=== PATIENT | female | born 1985 | race Two or more races ===

== ENCOUNTER 2020-09-30 10:13 | Emergency (ER) | payer OTHER ==
--- NOTE | 2020-09-30 10:27 | ER Document Report ---
ED Medical Screen (RME) - General Stated Complaint: VAGINAL BLEEDING/CLOTTING Time Seen by Provider: 09/30/20 10:27 Mode of Arrival: Ambulatory Information source: Patient Notes: 35-year-old female patient presented to the emergency department concern for vaginal bleeding and passing clots. Patient reports she usually has normal menstrual cycles. Her last menstrual cycle started on 09/14/20 and lasted 4 days. She states she began bleeding again on 09/24/2020. She states she went to her doctor and they diagnosed her with a urinary tract infection which she is currently taking antibiotics for. She states the bleeding has gotten worse and she is now passing clots. She denies any dizziness or episodes of syncope. Patient appears well, nontoxic, no acute distress noted. Exam deferred until patient is in a room due to nature of complaint. I have greeted and performed a rapid initial assessment of this patient. A comprehensive ED assessment and evaluation of the patient, analysis of test results and completion of the medical decision making process will be conducted by additional ED providers. I have specifically instructed the patient or family members with the patient to immediately return to any nursing staff should anything change in the patient's condition or with their chief complaint.
[2020-09-30 10:59] LABS: ABSOLUTE EOSINOPHILS # (AUTO) 0.1 10^3/uL (0.0-0.6); ABSOLUTE LYMPHOCYTES (AUTO) 1.7 10^3/uL (0.5-4.7); ABSOLUTE MONOCYTES (AUTO) 0.5 10^3/uL (0.1-1.4); ABSOLUTE NEUT (AUTO) 3.2 10^3/uL (1.7-8.2); BASOPHILS % (AUTO) 0.7 % (0-2); EOSINOPHILS % (AUTO) 1.9 % (0-6); HEMATOCRIT 36.6 % (36.0-47.0); HEMOGLOBIN 12.4 g/dL (12.0-15.5); LYMPHOCYTES % (AUTO) 31.3 % (13-45); MEAN CORPUSCULAR HEMOGLOBIN 30.8 pg (27.0-33.4); MEAN CORPUSCULAR HGB CONC 33.8 g/dL (32.0-36.0); MEAN CORPUSCULAR VOLUME 91 fl (80-97); PLATELET COUNT 273 10^3/uL (150-450); RED BLOOD COUNT 4.02 10^6/uL (3.72-5.28); RED CELL DISTRIBUTION WIDTH 13.7 % (11.5-14.0); SEGMENTED NEUTROPHILS % (AUTO) 57.1 % (42-78); TOTAL CELLS COUNTED % (AUTO) 100 %; WHITE BLOOD COUNT 5.6 10^3/uL (4.0-10.5)
[2020-09-30 11:00] LABS: APPEARANCE,URINE CLEAR; BILIRUBIN,URINE NEGATIVE (NEGATIVE); COLOR,URINE YELLOW; GLUCOSE, URINE NEGATIVE (NEGATIVE); KETONES,URINE NEGATIVE (NEGATIVE); LEUKOCYTE ESTERASE,URINE NEGATIVE (NEGATIVE); NITRITE,URINE NEGATIVE (NEGATIVE); PROTEIN,URINE NEGATIVE (NEGATIVE); URINE SPECIFIC GRAVITY 1.019; UROBILINOGEN,URINE NEGATIVE mg/dL (<2.0)
[2020-09-30 11:19] LABS: ALBUMIN 4.5 g/dL (3.5-5.0); ALKALINE PHOSPHATASE 64 U/L (38-126); ANION GAP 5 (5-19); ASPARTATE AMINO TRANSFERASE 28 U/L (14-36); BILIRUBIN,DIRECT 0.1 mg/dL (0.0-0.4); BILIRUBIN,TOTAL 0.4 mg/dL (0.2-1.3); BLOOD UREA NITROGEN 14 mg/dL (7-20); CALCIUM 9.5 mg/dL (8.4-10.2); CARBON DIOXIDE 26 mmol/L (22-30); CHLORIDE 104 mmol/L (98-107); GLUCOSE 94 mg/dL (75-110); POTASSIUM 4.8 mmol/L (3.6-5.0); TOTAL PROTEIN 7.6 g/dL (6.3-8.2)
--- NOTE | 2020-09-30 11:23 | RADIOLOGY REPORT (SQ) ---
EXAM DESCRIPTION: U/S NON OB PEL TV W/DOPPLER IMAGES COMPLETED DATE/TIME: 09/30/2020 11:09 am REASON FOR STUDY: vaginal bleeding/passing clots COMPARISON: None. TECHNIQUE: Dynamic and static grayscale images acquired of the pelvis via transvaginal approach and recorded on PACS. Additional selected color Doppler and spectral images recorded. LIMITATIONS: None. FINDINGS: UTERUS: Contour normal. No mass. ENDOMETRIAL STRIPE: No focal or generalized thickening. No masses. CERVIX: No nabothian cysts. RIGHT OVARY AND DOPPLER: Normal size. No worrisome masses. Normal arterial vascular flow without evid ence for torsion. LEFT OVARY AND DOPPLER: Normal size. No worrisome masses. Normal arterial vascular flow without evide nce for torsion. FREE FLUID: None noted. OTHER: No other significant finding. IMPRESSION: NORMAL TRANSVAGINAL PELVIC ULTRASOUND. TECHNICAL DOCUMENTATION: JOB ID: [id number] 2010 [facility]- All Rights Reserved Rev-02/02 Reading location - IP/workstation name: [email or web address]
--- NOTE | 2020-09-30 13:04 | ER Document Report ---
ED GI/ - General Chief Complaint: Vaginal Bleeding Stated Complaint: VAGINAL BLEEDING/CLOTTING Time Seen by Provider: 09/30/20 10:27 Primary Care Provider: RAJAT RAIN MD [Primary Care Provider] - Follow up as needed JUDY THORNTON MD [ACTIVE PROVISIONAL STAFF] - Follow up as needed Mode of Arrival: Ambulatory Information source: Patient Notes: 09/30/20 10:34 - ED Nursing Note by YASMANY CORBETT Acct Num: [id number] : 1985 Patient Age: 35 Pt presents to the ED with c/o of vaginal bleeding since the Sep. Pt's normal mense was the Aug -Sep, was dx via [facility] with a UTI on Sep. Pt has gone thru 3 [employer]. Suzette Corbett RN Initialized on 09/30/20 10:34 - END OF NOTE ED Medical Screen (Cinda concepcion) - General Stated Complaint: VAGINAL BLEEDING/CLOTTING Time Seen by Provider: 09/30/20 10:27 Mode of Arrival: Ambulatory Information source: Patient Notes: 35-year-old female patient presented to the emergency department concern for vaginal bleeding and passing clots. Patient reports she usually has normal menstrual cycles. Her last menstrual cycle started on 09/14/20 and lasted 4 days. She states she began bleeding again on 09/24/2020. She states she went to her doctor and they diagnosed her with a urinary tract infection which she is currently taking antibiotics for. She states the bleeding has gotten worse and she is now passing clots. She denies any dizziness or episodes of syncope. MY NOTES 35-year-old white female arrives with chief complaint of vaginal bleeding and clot formation. Patient advises she is never had this in the past. She had a normal LMP on 14 September and this lasted for 4 days then she began to have a repeat menstruation on 24 September. Patient continues to have vaginal bleeding today. Patient reports she is sexually active with her partner and has not had a control pills since 2016. They often use withdrawal or condoms. Patient has 1 child born at that time. Patient has had weight gain since her 150 pound prepregnancy weight. She tried Metformin and tried diuretics without result. She went to Dr. Quinten Bird in [place] and she placed her on Bydureon which is a dulaglutide which is a glucagon like peptide 1 receptor inhibitor. She complains of suprapubic pain and low back pain. Her CBC today and her transvaginal ultrasound are completely normal. She reports she has been on her injectable medication since June. Side effects for this include low blood sugars severe pain and upper stomach to back no pain to middle or lower back drowsiness mood changes swelling weight gain swelling in your neck or thyroid. Patient reports she gained 10 pounds from 160-170 while on this injectable medication. The only other surgery the patient has had is breast augmentation and a tummy tuck. Patient was diagnosed with UTI at [facility] and placed on Septra and also on Pyridium. 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 She denies any exposure to toxins or other injuries chemicals. Urine test today is completely normal. Patient reports as a teenager she had very painful and irregular periods but for the past several years she has had her menstrual cycle began at the end of each month. I spoke with Dr. Judy Thornton at 1338 and she advises either TXA or Sprintec control pills for 1 to 2 months. She also advises following up with her office for referral. We will get a TSH on this patient because of the possible side effects from her injectables. I spoke to patient about going back on control pills and she asked refuses this because of weight gain a few years ago. We will therefore use the TXA Lysteda - HPI Patient complains to provider of: Abdominal pain, Pelvic pain, Vaginal bleeding. No: Diarrhea, Dysuria, Feeding tube problem, Flank pain, Hematuria, Missed/Late menses, , Urinary retention, Vaginal discharge, Vaginal pain, Vomiting Onset: Last week Timing/Duration: Persistent Quality of pain: Achy, Cramping. denies: Burning Severity at maximum: Moderate Severity in ED: Moderate Pain Level: 2 Location: LLQ, RLQ, Suprapubic, Pelvis. No: Chest pain, Epigastric, LUQ, Left flank, Right flank, Low back - Related Data Allergies/Adverse Reactions: No Known Allergies Allergy (Unverified 09/30/20 14:26) Past Medical History - General Information source: Patient - Social History Smoking Status: Current Every Day Smoker Cigarette use (# per day): Yes Chew tobacco use (# tins/day): No Smoking Education Provided: Yes Frequency of alcohol use: Social Drug Abuse: None Lives with: Family Family History: Reviewed & Not Pertinent - Is a smoker Patient has suicidal ideation: No Patient has homicidal ideation: No Review of Systems - Review of Systems Constitutional: No symptoms reported EENT: No symptoms reported Cardiovascular: No symptoms reported Respiratory: No symptoms reported Gastrointestinal: No symptoms reported Genitourinary: See HPI, Pain - Suprapubic pain Female Genitourinary: See HPI, Vaginal bleeding Musculoskeletal: No symptoms reported Skin: No symptoms reported Hematologic/Lymphatic: No symptoms reported Neurological/Psychological: No symptoms reported Physical Exam - Vital signs Vitals: Temp 97.8 F 09/30/20 10:14 Interpretation: Normal - General General appearance: Appears well, Alert - HEENT Head: Normocephalic, Atraumatic Eyes: Normal Pupils: PERRL - Respiratory Respiratory status: No respiratory distress Chest status: Nontender Breath sounds: Normal Chest palpation: Normal - Cardiovascular Rhythm: Regular Heart sounds: Normal auscultation Murmur: No - Abdominal Inspection: Normal Distension: No distension Bowel sounds: Normal Tenderness: Nontender Organomegaly: No organomegaly - Rectal Hemorrhoids: Other - Deferred - Genitourinary Bimanuel exam: Other - Deferred - Back Back: Normal, Nontender - Extremities General upper extremity: Normal inspection, Nontender, Normal color, Normal ROM, Normal temperature General lower extremity: Normal inspection, Nontender, Normal color, Normal ROM, Normal temperature, Normal weight bearing. No: Eleanor's sign - Neurological Neuro grossly intact: Yes Cognition: Normal Orientation: AAOx4 Lupe Coma Scale Eye Opening: Spontaneous Lupe Coma Scale Verbal: Oriented Clyde Coma Scale Motor: Obeys Commands Lupe Coma Scale Total: 15 Speech: Normal Motor strength normal: LUE, RUE, LLE, RLE Sensory: Normal - Psychological Associated symptoms: Normal affect, Normal mood - Skin Skin Temperature: Warm Skin Moisture: Dry Skin Color: Normal Course - Vital Signs Vital signs: Temp Pulse Resp BP Pulse Ox 98.7 F 68 18 117/58 L 100 09/30/20 14:32 09/30/20 14:32 09/30/20 14:32 09/30/20 14:32 09/30/20 14:32 - Laboratory Results Result Diagrams: 09/30/20 10:45 09/30/20 10:45 Laboratory Results Interpreted: 09/30/20 10:45 Sodium 135.1 L Critical Laboratory Results Reviewed: Yes Attending or Supervising Physician who Reviewed Labs: TIMO ALCANTARA JR - Radiology Results Critical Radiology Results Reviewed: Yes Attending or Supervising Physician who Reviewed Radiology: TIMO ALCANTARA JR Discharge - Discharge Clinical Impression: Menometrorrhagia Condition: Stable Disposition: HOME, SELF-CARE Additional Instructions: Take medications as directed return to ER as needed also follow-up with Dr. Judy Thornton wheelchair van operator first responder here in [place]. You may also follow-up with your personal Dr. Bird in [place]. Many of your symptoms may also be related to your injectable Bydureon. Since she actually gained weight on this particular medicine this may need to be discontinued. Encourage fluids. Prescriptions: Tranexamic Acid [Lysteda] 650 mg PO TID 5 Days #15 tablet Referrals: RAJAT RAIN MD [Primary Care Provider] - Follow up as needed JUDY THORNTON MD [ACTIVE PROVISIONAL STAFF] - Follow up as needed
[2020-09-30 14:35] VITALS: BP 117/58
== END 2020-09-30 15:27 | disposition home or self-care (01) ==
LOC: ER 10:13
DX: N92.1 Excessive and frequent menstruation with irregular cycle (principal); N39.0 Urinary tract infection, site not specified; R63.5 Abnormal weight gain; M54.5 Low back pain; R10.2 Pelvic and perineal pain; R10.31 Right lower quadrant pain; R10.32 Left lower quadrant pain; F17.210 Nicotine dependence, cigarettes, uncomplicated; Z79.899 Other long term (current) drug therapy
CPT/HCPCS: 36415; 76830; 80053; 81001; 84443; 84703; 85025; 93976; 99284